=== PATIENT | female | born 2000 | race Caucasian/White ===

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

== ENCOUNTER 2021-07-20 17:11 | Emergency (ER) | payer BC ==
[~2021-07-20] VITALS: Ht 182.9 cm; Wt 65.9 kg
[~2021-07-20 17:11] MED LIST changes: +ALBU2.5V12 NEB; -ALBU8HFA PO; -PRED20TA PO; +[UNRECOGNIZED DRUG - CODE]
[2021-07-20] MEDS ORDERED: ondansetron 4mg rapidly disintigrating tab PO ONE (17:20)
[2021-07-20] MEDS ORDERED: ketorolac tromethamine 15mg/ml inj. IM ONE (17:20)
[2021-07-20] MEDS ORDERED: ondansetron/PF 4mg/2ml inj IV ONE (17:40)
[2021-07-20 17:43] LABS: BASOPHILS # (AUTO) 0.1 X10'3 (0-0.2); BASOPHILS % (AUTO) 0.5 % (0-1); EOSINOPHILS % (AUTO) 0 % (0-6); HEMATOCRIT 41.7 % (35.0-45.0); HEMOGLOBIN 14.1 g/dl (12.0-16.0); MEAN CORPUSCULAR HEMOGLOBIN 30.8 PG (27.0-31.0); MEAN CORPUSCULAR HGB CONC 33.7 g/dL (33.0-36.5); MEAN CORPUSCULAR VOLUME 91.3 FL (78-98); MEAN PLATELET VOLUME 7.3 FL (7.4-10.4); MONOCYTES # (AUTO) 0.6 X10'3 (0-0.9); MONOCYTES % (AUTO) 3.6 % (2-12); NEUTROPHILS # (AUTO) 15.1 X10'3 (1.8-7.7); NEUTROPHILS % (AUTO) 89.9 % (42-75); PLATELET COUNT 228 X10'3 (140-440); RED BLOOD COUNT 4.57 X10'6 (4.20-5.60); RED CELL DISTRIBUTION WIDTH 13.3 % (11.5-14.5); WHITE BLOOD COUNT 16.8 X10'3 (4.5-11.0)
[2021-07-20] MEDS ORDERED: normal saline 1000ml 1,000 ML IV ONE ×2 (17:50→20:00)
[2021-07-20 17:52] LABS: ALANINE AMINOTRANSFERASE 25 U/L (12-78); ALBUMIN 4.2 G/DL (3.4-5.0); ALBUMIN/GLOBULIN RATIO 1.3 (1.1-1.5); ALKALINE PHOSPHATASE 74 IU/L (46-116); ANION GAP 11 (8-16); ASPARTATE AMINO TRANSFERASE 23 U/L (10-37); BILIRUBIN,TOTAL 0.7 MG/DL (0.1-1.0); BLOOD UREA NITROGEN 12 MG/DL (7-18); BUN/CREATININE RATIO 15.4 (6.6-38.0); CALCIUM 9.4 MG/DL (8.5-10.1); CHLORIDE 107 MMOL/L (99-107); CREATININE 0.78 MG/DL (0.40-0.90); GLUCOSE 119 MG/DL (70-104); POTASSIUM 3.7 MMOL/L (3.5-5.1); SODIUM 141 MMOL/L (135-145); TOTAL CARBON DIOXIDE 22.9 MMOL/L (24-32); TOTAL PROTEIN 7.5 G/DL (6.4-8.2); eGFR > 90 ML/MIN
--- NOTE | 2021-07-20 17:55 | NUR ---
toradol dose given im instead of im per aydin manuel
[2021-07-20 18:11] LABS: BETA HCG,QUANTITATIVE < 1.0 mIU/ml
[2021-07-20] MEDS ORDERED: proCHLORperazine 10 MG/2 ml inj IV ONE (18:45)
[2021-07-20 19:12] LABS: CLARITY,URINE SLIGHTLY CLOUDY (Clear); COLOR,URINE YELLOW (Yellow); UA COLLECTION TYPE CLN CATCH MIDSTREAM
[2021-07-20 19:13] LABS: AMORPHOUS PHOSPHATES 3+; BACTERIA,URINE NONE SEEN /HPF (Neg); GLUCOSE, URINE NEGATIVE (Neg); KETONES,URINE 80 mg/dl (Neg); LEUKOCYTE ESTERASE ,URINE NEGATIVE (Neg); NITRITES, URINE NEGATIVE (Neg); OCCULT BLOOD,URINE NEGATIVE (Neg); PROTEIN,URINE NEGATIVE (Neg); SQUAMOUS EPITHELIAL CELL,UR FEW /LPF (FEW); UROBILINOGEN,URINE 0.2 E.U/dL (0.2-1.0); WBC,URINE NONE SEEN /HPF (0-4)
[2021-07-20] MEDS ORDERED: morphine 4 MG/ML inj SYRINge IV ONE (19:50)
[2021-07-20] MEDS ORDERED: PROC25SU31 RC (20:01)
[2021-07-20 20:18] VITALS: BP 109/66
== END 2021-07-20 22:04 | disposition home or self-care (01) ==
LOC: ER 17:13
DX: R10.84 Generalized abdominal pain (principal); R11.2 Nausea with vomiting, unspecified; N93.9 Abnormal uterine and vaginal bleeding, unspecified; R68.83 Chills (without fever); R42 Dizziness and giddiness; Z79.899 Other long term (current) drug therapy; Z88.1 Allergy status to other antibiotic agents
CPT/HCPCS: 36415; 76856; 80053; 81001; 84702; 85025; 93976; 96361; 96372; 96374; 96375; 99285; J0780; J1885; J2270; J2405; J7030